=== PATIENT | female | born 1990 | race Caucasian/White ===

== ENCOUNTER 2016-03-18 05:38 | Inpatient (IN) | payer OTHER ==
[2016-03-18] MEDS ORDERED: CITRIC ACID/SODIUM CITRATE 30 ML UNIT-DOSE CUP PO ONE (06:00)
[2016-03-18] MEDS ORDERED: ELECTROLYTE-148 SOLN 500 ML IV ONE (06:00)
[2016-03-18] MEDS ORDERED: ELECTROLYTE-148 SOLN 1,000 ML IV SCH (06:30)
[2016-03-18 06:39] LABS: BASOPHIL 0.6 % (0-2.0); EOSINOPHIL 4.4 % (0-4.5); MCH 30.6 pg (25.7-33.7); MCHC 34.6 g/dl (32.0-36.0); MEAN CELL VOLUME 88.4 fl (80-96); MEAN PLT VOLUME 8.1 fl (7.5-11.1); NEUTROPHILS 56.7 % (42.8-82.8); PLATELET COUNT 326 K/MM3 (134-434); WHITE BLOOD COUNT 9.8 K/mm3 (4.0-10.0)
--- NOTE | 2016-03-18 06:41 | HP ---
[id number] 4Bd Chief Complaint: 38 weeks , previous c/s , labor, vaginal bleeding History of Present Illness: 25 yo f g 5 p1 0 3 1, edc by bro[facility] 03/31/16 c/o vaginal bleeding and pain since this am, fhr cat 1 contraction q 2 min , cx 2 cm, 80 vx -1 , with moderate vaginal bleeding noted on exam. hx of previous c/s requesting repeat c/s, risks discussed History Source: Patient Limitations to Obtaining History: Language Barrier - Past Medical History Pulmonary: No: Asthma Gastrointestinal: Yes: Constipation (h/o Bm 12/27 after 3 days). No: Gastritis , GERD, GI Bleed, Hemorrhoids, Ulcerative Colitis Hepatobiliary: Yes: Cholelithiasis (diagnozed incurrent admission) ...: 5 ...Para: 1 ...Term: 1 ...: 0 ...Spon : 3 ...Induced : 0 ... Weeks Gestation by Dates: 38 ...EDC by [facility]: 03/31/16 Infectious Disease: Yes: STD's (h/o Herpes, last break out 08/18), Other (hx of herpes with previous ) - Past Surgical History Past Surgical History: Yes: (04/2011) Hx Myomectomy: No Hx Transabdominal Cerclage: No - Smoking History Smoking history: Never smoked Have you smoked in the past 12 months: No - Alcohol/Substance Use Hx Alcohol Use: No History of Substance Use: reports: None - Social History ADL: Independent Occupation: former business development consultant for [employer] History of Recent Travel: No Home Medications - Allergies Allergies/Adverse Reactions: Allergies Allergy/AdvReac Type Severity Reaction Status Date / Time No Known Drug Allergies Allergy Verified 03/18/16 08:19 anes Allergy Mild Rash Uncoded 03/17/16 11:28 - Home Medications Home Medications: Ambulatory Orders Vit/Iron Fumarate/FA [ Tablet] 1 tablet PO DAILY 12/29/15 Ferrous Gluconate [Iron] 256 mg PO BID 03/17/16 Ibuprofen [Motrin -] 600 mg PO Q4H PRN #30 tablet 03/22/16 Family Disease History - Family Disease History Family Disease History: Diabetes: Mother, CA: Grandparent (GI cancer) Review of Systems - Review of Systems Constitutional: reports: No Symptoms Eyes: reports: No Symptoms HENT: reports: No Symptoms Neck: reports: No Symptoms Cardiovascular: reports: No Symptoms Respiratory: reports: No Symptoms Genitourinary: reports: Vaginal Bleeding Musculoskeletal: reports: No Symptoms Integumentary: reports: No Symptoms Neurological: reports: No Symptoms Endocrine: reports: No Symptoms Hematology/Lymphatic: reports: No Symptoms Psychiatric: reports: No Symptoms Physical Exam - Maternity Constitutional: Yes: Well Nourished, No Distress, Calm Eyes: Yes: WNL, Conjunctiva Clear, EOM Intact HENT: Yes: WNL, Atraumatic, Normocephalic Neck: Yes: WNL, Supple, Trachea Midline Cardiovascular: Yes: WNL, Regular Rate and Rhythm Breast(s): Yes: WNL - Abdominal Exam/OB Fundal Height: 40 Number of Fetuses: Single Presentation: Vertex Regularity: Regular Intensity: Mod/Strong Monitor Mode: External Heart Rate Location: [facility] Category: I Accelerations: Uniform Decelerations: None - Vaginal Exam/OB Vaginal Bleediing: Moderate Dilatation (cm): 2 cm Effacement (%): 80 Amniotic Membrane Status: Ruptured Nitrazine Test: Positive Presentation: Vertex/Position Station: -2 - Physical Exam Extremities: Yes: WNL Edema: LLE: Trace, RLE: Trace Integumentary: Yes: WNL Deep Tendon Reflex Grade: Normal +2 ...Motor Strength: WNL Psychiatric: Yes: WNL Hemorrhage Risk Assessment - Risk Factors Medium Risk Factors: Yes: Prior , uterine surgery,or multiple laparotomies Risk Score: 1 Risk Level: Medium Risk Assessment/Plan 38 weeks,previous c/s ,labor, vaginal bleeding, fhr cat 1 plan repeat c/s risks ulternative discussed
[2016-03-18 06:54] LABS: INR 1.04 (0.82-1.09); PROTHROMBIN TIME (PATIENT) 11.4 SEC (9.98-11.88)
[2016-03-18 06:57] LABS: ACTIVATED PTT 26.3 SECONDS (26.9-34.4)
[2016-03-18 07:01] LABS: ALBUMIN 2.8 g/dl (3.4-5.0); ALK PHOS 115 U/L (45-117); ANION GAP 11 (8-16); BILIRUBIN,TOTAL 0.2 mg/dL (0.2-1.0); CALCIUM 8.9 mg/dL (8.5-10.1); CO2 23 mmol/L (21-32); CREATININE 0.4 mg/dL (0.55-1.02); GLUCOSE,RANDOM 83 mg/dL (74-106); SGPT/ALT 15 U/L (12-78); TOT PROT 6.3 g/dl (6.4-8.2)
[2016-03-18 07:22] LABS: SGOT/AST 15 U/L (15-37)
[2016-03-18] MEDS ORDERED: ONDANSETRON 4 MG/2 ML VIAL IVPB PRN (07:28)
[2016-03-18] MEDS ORDERED: morphine SULFATE/Preservative Free 0.5 MG/ML (1cc Syringe) SPIN ONE (07:28)
[2016-03-18 07:38] LABS: HIV 1 & 2 AB NEGATIVE; HIV 1 AGp24 NEGATIVE
[2016-03-18] MEDS ORDERED: WITCH HAZEL 50% (TUCKS) 40 PAD/JAR PAD TP PRN (07:38)
[2016-03-18] MEDS ORDERED: METHYLERGONOVINE MALEATE 0.2 MG/1 ML AMP IM PRN (07:38)
[2016-03-18] MEDS ORDERED: oxyCODONE HCL 5 MG TABLET PO PRN (07:38)
[2016-03-18] MEDS ORDERED: IBUPROFEN 800 MG/8 ML IJ IVPB PRN (07:38)
[2016-03-18] MEDS ORDERED: BENZOCAINE 20% 57 GM BOTTLE TP PRN (07:38)
[2016-03-18] MEDS ORDERED: diphenhydrAMINE HCL 25 MG CAPSULE (FP) PO PRN (07:38)
[2016-03-18] MEDS ORDERED: IBUPROFEN 600 MG TABLET (FP) PO PRN (07:38)
[2016-03-18] MEDS ORDERED: BENZOCAINE 28 GM HEMORRHOIDAL OINTMENT PR PRN (07:38)
[2016-03-18] MEDS ORDERED: OXYTOCIN 20 UNITS in 0.9% NS 1,000 ML IV SCH (07:45)
[2016-03-18] MEDS ORDERED: DEXTROSE 5%-LACTATED RINGERS 1,000 ML IV SCH (07:45)
[2016-03-18 07:49] VITALS: BMI 32.0
--- NOTE | 2016-03-18 08:33 | OP ---
DATE OF OPERATION: 03/18/2016 PREOPERATIVE DIAGNOSIS: 38 weeks, previous section, labor, vaginal bleeding, ruptured membranes. POSTOPERATIVE DIAGNOSIS: 38 weeks, previous section, labor, vaginal bleeding, ruptured membranes, partial placental abruption. SURGEON: Salomon Wood MD STAGE SET DESIGNER: SUKHI Simeon ANESTHESIA: [place], . ESTIMATED BLOOD LOSS: 500 mL. DESCRIPTION OF PROCEDURE: The patient was taken to the operating room under adequate spinal anesthesia. Abdomen and perineum was prepped and draped. Pfannenstiel abdominal skin incision was made. Abdominal wall was cut layer by layer until the peritoneum was exposed and incised. Upon entering the abdominal cavity, lower uterine segment was identified and uterovesical fold of peritoneum established. Bladder was pushed down. Then with the lower blade of the Jeff retractor in the pelvis, a low transverse uterine incision was made. Incision was extended laterally. Amniotic sac was entered. Bloody fluid. Head delivered from right occiput posterior position. Nasopharynx was suctioned and live baby delivered. Apgars 9/9. Placenta was delivered. There was about 50 mL of blood clot retroplacental. Uterine cavity was cleaned of all tissues and then uterine incision was closed in 2 layers, the 1st layer with 0 Biosyn continuous suture, the 2nd layer with 0 Biosyn imbricating the 1st layer. Bladder flap was closed with 0 Biosyn continuous suture. Both tubes and ovaries were checked and were normal. No active bleeding was seen. All of the lap pad, sponge, and instrument counts were correct. Pelvic cavity several times irrigated and then peritoneum was closed with 0 Biosyn continuous suture. Muscles were brought together with interrupted sutures of 0 Biosyn. Fascia was closed with 0 Biosyn continuous suture, subcutaneous fat interrupted suture of 0 Biosyn, and the skin was closed with andreea. The patient tolerated the procedure well and left the OR in good condition. SALOMON WOOD M.D. [id number]
[2016-03-18] MEDS ORDERED: CEFAZOLIN 1 GM/D5W 50 ML IVPB SCH (10:00)
[2016-03-18] MEDS: CEFAZOLIN 1 GM/D5W 50 ML IVPB SCH (17:51)
[2016-03-19] MEDS: CEFAZOLIN 1 GM/D5W 50 ML IVPB SCH (01:47)
[2016-03-19] MEDS ORDERED: BISACODYL 10 MG SUPP.RECT RC PRN (07:38)
[2016-03-19 08:54] LABS: BASOPHIL 0.3 % (0-2.0); MCH 31.6 pg (25.7-33.7); MCHC 35.8 g/dl (32.0-36.0); MEAN CELL VOLUME 88.2 fl (80-96); MEAN PLT VOLUME 7.1 fl (7.5-11.1); NEUTROPHILS 72.8 % (42.8-82.8); PLATELET COUNT 259 K/MM3 (134-434); RDW 14.1 % (11.6-15.6); WHITE BLOOD COUNT 11.4 K/mm3 (4.0-10.0)
--- NOTE | 2016-03-19 09:40 | PN ---
Progress Note (short form) - Note Progress Note: pod 1 doing well, no excess vaginal bleeding, has mild cramps CBC, BMP 03/19/16 08:00 03/18/16 06:20 Last Vital Signs Temp Pulse Resp BP Pulse Ox 98.6 F 98 H 20 122/66 100 03/19/16 05:24 03/19/16 05:24 03/19/16 05:24 03/19/16 05:24 03/18/16 08:40 abdomen soft, no distension, no cva incision dry, clean no calf tenderness lochia mild plan ambulate, advance diet
[2016-03-19 11:46] LABS: URINE APPEARANCE CLEAR; URINE BILIRUBIN NEGATIVE (NEGATIVE); URINE COLOR STRAW; URINE GLUCOSE (UA) NEGATIVE (NEGATIVE); URINE KETONE TRACE (NEGATIVE); URINE NITRITE NEGATIVE (NEGATIVE); URINE PROTEIN NEGATIVE (NEGATIVE); URINE UROBILINOGEN NEGATIVE E.U./dl (0.2-1.0)
[2016-03-19 11:47] LABS: URINE BLOOD 3+ (NEGATIVE); URINE LEUK ESTERASE TRACE (NEGATIVE)
[2016-03-19 11:49] LABS: URINE BACTERIA RARE /hpf (NONE SEEN); URINE MUCUS RARE; URINE RBC 3 /hpf (0-3); URINE WBC 9 /hpf (3-5)
[2016-03-19] MEDS: IBUPROFEN 600 MG TABLET (FP) PO PRN ×2 (13:38→23:58)
[2016-03-19] MEDS: oxyCODONE HCL 5 MG TABLET PO PRN ×2 (13:38→23:59)
[2016-03-19] MEDS: SIMETHICONE 80 MG TAB.CHEW (FP) PO PRN ×2 (13:38→23:59)
--- NOTE | 2016-03-20 07:18 | PN ---
Progress Note (short form) - Note Progress Note: Dept of Anesthesia post op check: S/p c section under spinal anesthesia with duramorph for post op pain control. Patient is doing well, no adverse reaction from anesthetic. No headache, nausea , vomiting, motor sensory function back to normal. Dept of anesthesia will sign off care at this time.
--- NOTE | 2016-03-20 08:26 | PN ---
Progress Note (short form) - Note Progress Note: pod 2 doing well, passing gas, ambulating well CBC, BMP 03/19/16 08:00 03/18/16 06:20 Last Vital Signs Temp Pulse Resp BP Pulse Ox 98.7 F 96 H 20 124/61 100 03/19/16 22:00 03/19/16 22:00 03/19/16 22:00 03/19/16 22:00 03/18/16 08:40 abdomen soft, no distension, no cva incision dry, clean no calf tenderness plan cbc in am observe
[2016-03-20] MEDS: oxyCODONE HCL 5 MG TABLET PO PRN ×2 (13:52→23:16)
[2016-03-20] MEDS: SIMETHICONE 80 MG TAB.CHEW (FP) PO PRN ×2 (13:53→23:14)
[2016-03-20] MEDS: IBUPROFEN 600 MG TABLET (FP) PO PRN ×2 (13:53→23:14)
[2016-03-20] MEDS ORDERED: SENNOSIDES/DOCUSATE COMBO (SENNA PLUS) TABLET (UD) PO PRN (22:00)
--- NOTE | 2016-03-21 07:35 | PN ---
Post Progress Note - Subjective Subjective: Doing well postop. Tolerating regular diet, ambulating, voiding, passing flatus , pain well controlled. Post Day: 3 Type of Delivery: Repeat C/S Vital Signs: Vital Signs Temperature 98.3 F 03/20/16 20:46 Pulse Rate 82 03/20/16 20:46 Respiratory Rate 20 03/20/16 20:46 Blood Pressure 134/76 03/20/16 20:46 O2 Sat by Pulse Oximetry (%) 100 03/18/16 08:40 Breast Exam: Yes: Soft Uterus: Yes: Fundus Firm, Fundus below umbilicus Incision: Yes: Watrous intact Abdomen/GI: Yes: Abdomen soft, Passing flatus Lochia: Yes: Rubra Lochia, amount: Small Extremities: Yes: Calves non-tender Perineum: Yes: Intact Activity: Ambulating - Labs Labs: CBC WBC 11.4 K/mm3 (4.0-10.0) H 03/19/16 08:00 RBC 3.33 M/mm3 (3.60-5.2) L 03/19/16 08:00 Hgb 10.5 GM/dL (10.7-15.3) L D 03/19/16 08:00 Hct 29.4 % (32.4-45.2) L D 03/19/16 08:00 MCV 88.2 fl (80-96) 03/19/16 08:00 MCHC 35.8 g/dl (32.0-36.0) 03/19/16 08:00 RDW 14.1 % (11.6-15.6) 03/19/16 08:00 Plt Count 259 K/MM3 (134-434) D 03/19/16 08:00 MPV 7.1 fl (7.5-11.1) L D 03/19/16 08:00 Neutrophils % 72.8 % (42.8-82.8) D 03/19/16 08:00 Lymphocytes % 18.8 % (8-40) D 03/19/16 08:00 Monocytes % 6.1 % (3.8-10.2) 03/19/16 08:00 Eosinophils % 2.0 % (0-4.5) 03/19/16 08:00 Basophils % 0.3 % (0-2.0) 03/19/16 08:00 Assessment/Plan 24P2 POD#3 s/p R C/S, in labor. Doing well post op. VSS. AF. Anemic, denies SOB/ CP/Palpitations -Routine postop care -f/u AM CBC -encourage ambulation -regular diet -PO pain medication -anticipate d/c home POD4
[2016-03-21 07:56] LABS: BASOPHIL 0.2 % (0-2.0); EOSINOPHIL 4.6 % (0-4.5); MCH 31.4 pg (25.7-33.7); MCHC 35.5 g/dl (32.0-36.0); MEAN CELL VOLUME 88.5 fl (80-96); MEAN PLT VOLUME 7.3 fl (7.5-11.1); NEUTROPHILS 71.5 % (42.8-82.8); PLATELET COUNT 298 K/MM3 (134-434); RDW 14.2 % (11.6-15.6); WHITE BLOOD COUNT 10.2 K/mm3 (4.0-10.0)
[2016-03-21] MEDS: SIMETHICONE 80 MG TAB.CHEW (FP) PO PRN (18:34)
[2016-03-22 08:25] VITALS: BP 120/72; PULSE 86; TEMP 97.3
--- NOTE | 2016-03-22 08:45 | PN ---
Post Progress Note - Subjective Subjective: no c/o pain voiding without difficulty Post Day: 4 Type of Delivery: Repeat C/S Vital Signs: Vital Signs Temperature 97.3 F L 03/22/16 08:00 Pulse Rate 86 03/22/16 08:00 Respiratory Rate 14 03/22/16 08:00 Blood Pressure 120/72 03/22/16 08:00 O2 Sat by Pulse Oximetry (%) 100 03/18/16 08:40 Breast Exam: Yes: Soft. No: Engorged Uterus: Yes: Fundus Firm, Fundus below umbilicus Incision: Yes: Struthers intact. No: Redness, Oozing Abdomen/GI: Yes: Abdomen soft, Tolerating PO (diet ). No: Abdominal Distention , Tender Lochia: Yes: Rubra Lochia, amount: Moderate Extremities: Yes: Calves non-tender Perineum: Yes: Intact Activity: Ambulating - Labs Labs: CBC WBC 10.2 K/mm3 (4.0-10.0) H 03/21/16 07:00 RBC 3.51 M/mm3 (3.60-5.2) L 03/21/16 07:00 Hgb 11.0 GM/dL (10.7-15.3) 03/21/16 07:00 Hct 31.1 % (32.4-45.2) L 03/21/16 07:00 MCV 88.5 fl (80-96) 03/21/16 07:00 MCHC 35.5 g/dl (32.0-36.0) 03/21/16 07:00 RDW 14.2 % (11.6-15.6) 03/21/16 07:00 Plt Count 298 K/MM3 (134-434) 03/21/16 07:00 MPV 7.3 fl (7.5-11.1) L 03/21/16 07:00 Neutrophils % 71.5 % (42.8-82.8) 03/21/16 07:00 Lymphocytes % 18.9 % (8-40) 03/21/16 07:00 Monocytes % 4.8 % (3.8-10.2) 03/21/16 07:00 Eosinophils % 4.6 % (0-4.5) H D 03/21/16 07:00 Basophils % 0.2 % (0-2.0) 03/21/16 07:00 Assessment/Plan stable. discharge today
--- NOTE | 2016-03-27 12:36 | PATH ---
Surgical Pathology Report Patient Name: MOODY BORREGO Med. Rec. #: [id number] /Age/Gender: 1990 (Age: 25) / F Account: [id number] Location: [facility] OBS/ANTIQUER Taken: 03/18/2016 Received: 03/20/2016 Reported: 03/27/2016 Physicians: Brandon Wood M.D. Specimen(s) Received PLACENTA Clinical History , ROM, labor, vaginal bleeding, +GBS-not tx; c/section x1 Repeat c/section Final Diagnosis PLACENTA, DELIVERY: FOCALLY DISRUPTED THIRD TRIMESTER PLACENTA WITH FOCAL FIBRIN THROMBUS, FOCAL MILD INCREASE IN PREVILLOUS, PERIVILLOUS, AND PRECHORIONIC FIBRIN DEPOSITION, THREE VESSEL UMBILICAL CORD, AND PLACENTAL MEMBRANES WITH FOCAL LAMELLAR NECROSIS. Electronically Signed Dusty Tavera M.D. Gross Description The specimen is received fresh, labeled "placenta" and is a 401 gram, 17.5 x 13.0 x 2.0 cm placenta with attached membranes and umbilical cord. The attached membranes are clancy, translucent with focal opacities and insert marginally. The umbilical cord measures 23 cm in length and averages 1 cm in diameter. The cord inserts eccentrically, 4.5 cm to the nearest margin. No true knots or strictures are identified. Cut surface of the umbilical cord reveals 3 vessels. The surface is oden-blue with fibrin deposition and appropriate caliber vessels. The maternal surface is red-brown with focal defects. Sectioning reveals a 1.5 cm in greatest dimension hemorrhagic intraparenchymal lesion. The remaining placental parenchyma is red-brown and spongy. Regulatory Affairs Analyst sections are submitted in 4 cassettes as follows: 1-membrane rolls and umbilical cord; 2-lesion; 0-9-fxmi-thickness sections of placenta. 03/24/2016 saudi03/24/2016
== END 2016-03-22 12:10 | disposition home or self-care (01) | DRG 540 ==
LOC: JDEL 05:38 → JLDR 05:55 → J3W 09:15
PROVIDERS: ADMIT Obstetrics & Gynecology; ATTEND Obstetrics & Gynecology
PROC: 10D00Z1 Extraction of Products of Conception, Low, Open Approach (ICD-10-PCS; principal; 2016-03-18)
DX: O34.219 Maternal care for unspecified type scar from previous cesarean delivery (principal); O99.02 Anemia complicating childbirth; Z3A.38 38 weeks gestation of pregnancy; Z37.0 Single live birth
CPT/HCPCS: 36415; 80053; 81003; 81015; 85025; 85610; 85730; 86593; 86762; 86850; 86900; 86901; 87340; 87389; 88307-TC

== ENCOUNTER 2017-02-08 06:13 | Day surgery (SDC) | payer OTHER ==
--- NOTE | 2017-02-08 07:05 | PDOC ---
History of Present Illness - General Chief Complaint: Pain, Acute Stated Complaint: ABD PAIN Time Seen by Provider: 02/08/17 07:05 - History of Present Illness Initial Comments: 02/08/17 07:26 Ms. Eric Holden is a 26 yo female w/ prior dx of cholelithiasis who presents complaining of a 6 hour history of RUQ pain. She reports this pain started around 1 in the morning and she was not able to sleep last night. She says this feels very similar to a prior episode about a year ago when she was first told she had gall stones. She rates the pain as 4-5 out of 10 and says the pain is constant. The patient denies chest pain, shortness of breath, headache and dizziness. Denies fever, chills, nausea, vomit, diarrhea and constipation. Denies dysuria, frequency, urgency and hematuria. Allergies: NKDA Past History - Past Medical History Allergies/Adverse Reactions: Allergies Allergy/AdvReac Type Severity Reaction Status Date / Time No Known Drug Allergies Allergy Verified 03/18/16 08:19 anes Allergy Mild Rash Uncoded 03/17/16 11:28 Home Medications: Ambulatory Orders NK [No Known Home Medication] 02/08/17 Anemia: No Asthma: No Cancer: No Cardiac Disorders: No CVA: No COPD: No DVT: No Dementia: No Diabetes: No Dialysis: No GI Disorders: No Disorders: No HTN: No Hypercholesterolemia: No Kidney Stones: No Liver Disease: No Psychiatric Problems: No Seizures: No Thyroid Disease: No Lung CA: No - Reproductive History (#): 5 Para: 1 - Immunization History Immunization Up to Date: Yes - Suicide/Smoking/Psychosocial Hx Smoking History: Never smoked Have you smoked in the past 12 months: No Hx Alcohol Use: No Drug/Substance Use Hx: No Substance Use Type: None Hx Substance Use Treatment: No Review of Systems - Review of Systems Comments:: 02/08/17 07:30 GENERAL/CONSTITUTIONAL: No fever or chills. No weakness. HEAD, EYES, EARS, NOSE AND THROAT: No change in vision. No ear pain or discharge. No sore throat. CARDIOVASCULAR: No chest pain or shortness of breath RESPIRATORY: No cough, wheezing, or hemoptysis. GASTROINTESTINAL: +RUQ pain since 1 am GENITOURINARY: No dysuria, frequency, or change in urination. MUSCULOSKELETAL: No joint or muscle swelling or pain. No neck or back pain. SKIN: No rash NEUROLOGIC: No headache, vertigo, loss of consciousness, or change in strength/ sensation. ENDOCRINE: No increased thirst. No abnormal weight change HEMATOLOGIC/LYMPHATIC: No anemia, easy bleeding, or history of blood clots. ALLERGIC/IMMUNOLOGIC: No hives or skin allergy. *Physical Exam - Vital Signs Last Vital Signs Temp Pulse Resp BP Pulse Ox 98.7 F 74 18 120/76 99 02/08/17 06:32 02/08/17 06:32 02/08/17 06:32 02/08/17 06:32 02/08/17 06:32 - Physical Exam Comments: 02/08/17 07:31 GENERAL: Awake, alert, and fully oriented, in no acute distress HEAD: No signs of trauma, normocephalic, atraumatic EYES: PERRLA, EOMI, sclera anicteric, conjunctiva clear ENT: Auricles normal inspection, hearing grossly normal, nares patent, oropharynx clear without exudates. Moist mucosa NECK: Normal ROM, supple, no lymphadenopathy, JVD, or masses LUNGS: No distress, speaks full sentences, clear to auscultation bilaterally HEART: Regular rate and rhythm, normal S1 and S2, no murmurs, rubs or gallops, peripheral pulses normal and equal bilaterally. ABDOMEN: +TTP in RUQ. Soft, normoactive bowel sounds. No guarding, no rebound. No masses EXTREMITIES: Normal inspection, Normal range of motion, no edema. No clubbing or cyanosis. NEUROLOGICAL: Cranial nerves II through XII grossly intact. Normal speech, normal gait, no focal sensorimotor deficits SKIN: Warm, Dry, normal turgor, no rashes or lesions noted. ED Treatment Course - LABORATORY CBC & Chemistry Diagram: 02/08/17 07:30 02/08/17 07:27 Medical Decision Making - Medical Decision Making 02/08/17 09:40 Ms. Reyes has a history of cholelithiasis with coinciding RUQ symptoms. Abdominal US confirmatory; patient currently reporting resolution of pain. No signs of cholecystitis noted (no increased WBC, fever, edema on US, etc.). Will consult Gen Surg (Chris assistant manager of operations) for cholecystectomy consultation. 02/08/17 10:58 Dr. Perez evaluated patient and will take to OR. Admitting as instructed. *DC/Admit/Observation/Transfer Diagnosis at time of Disposition: Cholelithiasis Qualifiers: Cholelithiasis location: gallbladder Cholecystitis presence: without cholecystitis Biliary obstruction: with biliary obstruction Qualified Code(s): K80.21 - Calculus of gallbladder without cholecystitis with obstruction - Discharge Dispostion Admit: Yes - Referrals Referrals: Kayla Jay [Primary Care Provider] - - Patient Instructions - Post Discharge Activity
[2017-02-08 07:18] LABS: URINE APPEARANCE SLCLOUDY; URINE BILIRUBIN NEGATIVE (NEGATIVE); URINE BLOOD NEGATIVE (NEGATIVE); URINE COLOR YELLOW; URINE GLUCOSE (UA) NEGATIVE (NEGATIVE); URINE KETONE NEGATIVE (NEGATIVE); URINE NITRITE NEGATIVE (NEGATIVE); URINE PROTEIN NEGATIVE (NEGATIVE); URINE UROBILINOGEN NEGATIVE mg/dL (0.2-1.0)
[2017-02-08] MEDS ORDERED: SODIUM CHLORIDE 1,000 ML IV STA (07:20)
[2017-02-08] MEDS ORDERED: morphine CARPU-JECT 2 MG/1 ML DISP.SYRIN IVPUSH ONE (07:21)
[2017-02-08] MEDS ORDERED: ONDANSETRON 4 MG/2 ML VIAL IVPUSH ONE (07:22)
[2017-02-08 07:24] LABS: URINE LEUK ESTERASE 2+ (NEGATIVE)
[2017-02-08 07:26] LABS: URINE BACTERIA RARE /hpf (NONE SEEN); URINE MUCUS FEW; URINE RBC 1 /hpf (0-3); URINE WBC 5 /hpf (3-5)
[2017-02-08] MEDS ORDERED: morphine SULFATE 4 MG/ML VIAL ONE (07:29)
[2017-02-08] MEDS ORDERED: ONDANSETRON 4 MG/2 ML VIAL ONE (07:29)
[2017-02-08 07:56] LABS: BASOPHIL 0.5 % (0-2.0); EOSINOPHIL 3.4 % (0-4.5); MCH 27.4 pg (25.7-33.7); MCHC 34.2 g/dl (32.0-36.0); MEAN PLT VOLUME 7.5 fl (7.5-11.1); NEUTROPHILS 49.4 % (42.8-82.8); PLATELET COUNT 374 K/MM3 (134-434); RDW 15.4 % (11.6-15.6); WHITE BLOOD COUNT 7.7 K/mm3 (4.0-10.0)
--- NOTE | 2017-02-08 08:03 | PDOC ---
Attending Attestation - Medical Decision Making 02/08/17 10:12 Dr. Perez paged via office number. Awaiting call back. 02/08/17 10:32 Dr. Perez returned the page and the patients case was discussed with me. <Kimi Cornell - Last Filed: 02/08/17 10:32> - Resident Resident Name: Vasile Escalante - ED Attending Attestation I have performed the following: I have examined & evaluated the patient, The case was reviewed & discussed with the resident, I agree w/resident's findings & plan, Exceptions are as noted - HPI HPI: 02/08/17 07:26 26 F with no PMH presents to ER with RUQ pain that started at 1 AM today. She reports constant pain radiating from her epigastric region to her R side. Pt denies N/V. Denies F/C. Denies any association with food. Had one similar episode a year ago and was found to have gallstones. Did not have surgery at that time because she was . Last PO intake was last night 9pm. - Physicial Exam PE: 02/08/17 08:10 "GENERAL: Awake, alert, and fully oriented, in no acute distress HEAD: No signs of trauma EYES: PERRLA, EOMI, sclera anicteric, conjunctiva clear ENT: Auricles normal inspection, hearing grossly normal, nares patent, oropharynx clear without exudates. Moist mucosa NECK: Nontender, no stepoffs, Normal ROM, supple, no lymphadenopathy, JVD, or masses LUNGS: Breath sounds equal, clear to auscultation bilaterally. No wheezes, and no crackles HEART: Regular rate and rhythm, normal S1 and S2, no murmurs, rubs or gallops ABDOMEN: +RUQ TTP, no rebound/guarding EXTREMITIES: Normal range of motion, no edema. No clubbing or cyanosis. No cords, erythema, or tenderness NEUROLOGICAL: Cranial nerves II through XII intact. 5/5 strength and sensation in all extremities, Normal speech, normal gait SKIN: Warm, Dry, normal turgor, no rashes or lesions noted. " - Medical Decision Making 02/08/17 08:10 26 F with known cholelithiasis, presenting with RUQ pain. Will repeat US to evaluate for signs of acute cholecystitis vs obstructing stone. - Labs - RUQ sono - Surgery consult 02/08/17 10:[address] cholelithiasis. Dr. Perez consulted, to evaluate pt for possible cholecystectomy. <Markell Monet - Last Filed: 02/08/17 10:59>
[2017-02-08 08:26] LABS: INR 1.12 (0.82-1.09); PROTHROMBIN TIME (PATIENT) 12.6 SEC (9.98-11.88)
[2017-02-08 08:29] LABS: ACTIVATED PTT 30.3 SECONDS (26.9-34.4)
[2017-02-08 08:56] LABS: ALBUMIN 3.7 g/dl (3.4-5.0); ANION GAP 6 (8-16); BILIRUBIN,TOTAL 0.2 mg/dL (0.2-1.0); CALCIUM 8.4 mg/dL (8.5-10.1); CO2 24 mmol/L (21-32); CREATININE 0.5 mg/dL (0.55-1.02); GLUCOSE,RANDOM 94 mg/dL (74-106); SGPT/ALT 24 U/L (12-78); TOT PROT 7.5 g/dl (6.4-8.2)
[2017-02-08 08:57] LABS: ALK PHOS 83 U/L (45-117)
[2017-02-08 09:40] LABS: SGOT/AST 17 U/L (15-37)
--- NOTE | 2017-02-08 11:33 | EKG ---
Test Reason : Blood Pressure : / mmHG Vent. Rate : 075 BPM Atrial Rate : 075 BPM P-R Int : 130 ms QRS Dur : 082 ms QT Int : 384 ms P-R-T Axes : 052 -11 003 degrees QTc Int : 428 ms NORMAL SINUS RHYTHM NORMAL ECG NO PREVIOUS ECGS AVAILABLE Confirmed by NAE NASH MD ([id number]) on 02/08/2017 11:33:00 AM Referred By: Confirmed By:NAE NASH MD
[2017-02-08 11:38] LABS: URINE LEUK ESTERASE Negative (NEGATIVE)
--- NOTE | 2017-02-08 11:46 | HP ---
CHIEF COMPLAINT:RUQ abdominal pain PCP: HISTORY OF PRESENT ILLNESS:26 y/o female presented w/> 6 hours of RUQ abdominal pain w/ nausea; no vomting; she has a h/o known cholelithiasis previously dxed 12/18 during ; she denies dark urine/light stools; NOC. Recent Travel:none PAST MEDICAL HISTORY:none PAST SURGICAL HISTORY:C-S x 2 Social History: Smoking:none Alcohol:none Drugs: none Family History:non contributory Allergies No Known Drug Allergies Allergy (Verified 03/18/16 08:19) anes Allergy (Mild, Uncoded 03/17/16 11:28) Rash epidural anesthesia last HOME MEDICATIONS: Home Medications Medication Instructions Recorded NK [No Known Home Medication] 02/08/17 REVIEW OF SYSTEMS CONSTITUTIONAL: Absent: fever, chills, diaphoresis, generalized weakness, malaise, loss of appetite, weight change HEENT: Absent: rhinorrhea, nasal congestion, throat pain, throat swelling, difficulty swallowing, mouth swelling, ear pain, eye pain, visual changes CARDIOVASCULAR: Absent: chest pain, syncope, palpitations, irregular heart rate, lightheadedness , peripheral edema RESPIRATORY: Absent: cough, shortness of breath, dyspnea with exertion, orthopnea, wheezing, stridor, hemoptysis GASTROINTESTINAL: Present abdominal pain, abdominal distension, nausea, vomiting, GENITOURINARY: Absent: dysuria, frequency, urgency, hesitancy, hematuria, flank pain, genital pain MUSCULOSKELETAL: Absent: myalgia, arthralgia, joint swelling, back pain, neck pain SKIN: Absent: rash, itching, pallor HEMATOLOGIC/IMMUNOLOGIC: Absent: easy bleeding, easy bruising, lymphadenopathy, frequent infections ENDOCRINE: Absent: unexplained weight gain, unexplained weight loss, heat intolerance, cold intolerance NEUROLOGIC: Absent: headache, focal weakness or paresthesias, dizziness, unsteady gait, seizure, mental status changes, bladder or bowel incontinence PSYCHIATRIC: Absent: anxiety, depression, suicidal or homicidal ideation, hallucinations. PHYSICAL EXAMINATION Vital Signs - 24 hr 02/08/17 06:32 Temperature 98.7 F Pulse Rate 74 Respiratory 18 Rate Blood Pressure 120/76 O2 Sat by Pulse 99 Oximetry (%) GENERAL: Awake, alert, and fully oriented, in no acute distress. HEAD: Normal with no signs of trauma. EYES: sclera anicteric, conjunctiva clear. No lid lag. EARS, NOSE, THROAT: Ears normal, nares patent, Moist mucous membranes. NECK: Normal range of motion, supple without lymphadenopathy, JVD, or masses. ABDOMEN: Soft, tender RUQ w/inspiratory arrest, not distended, normoactive bowel sounds, RUQ guarding, no rebound, no masses. No hepatomegaly or splenomegaly. No hernias. MUSCULOSKELETAL: Normal range of motion at all joints. No bony deformities or tenderness. No CVA tenderness. UPPER EXTREMITIES: 2+ pulses, warm, well-perfused. No cyanosis. No clubbing. No peripheral edema. LOWER EXTREMITIES: 2+ pulses, warm, well-perfused. No calf tenderness. No peripheral edema. NEUROLOGICAL: Cranial nerves II-XII intact. Normal speech. Normal gait. PSYCHIATRIC: Cooperative. Good eye contact. Appropriate mood and affect. SKIN: Warm, dry, normal turgor, no rashes or lesions noted, normal capillary refill. Laboratory Results - last 24 hr 02/08/17 02/08/17 02/08/17 06:59 06:59 07:27 WBC RBC Hgb Hct MCV MCH MCHC RDW Plt Count MPV Neutrophils % Lymphocytes % Monocytes % Eosinophils % Basophils % PT with INR INR PTT (Actin FS) Sodium 138 Potassium 4.5 Chloride 108 H Carbon Dioxide 24 Anion Gap 6 L BUN 7 Creatinine 0.5 L D Creat Clearance w eGFR > 60 Random Glucose 94 Calcium 8.4 L Total Bilirubin 0.2 AST 17 ALT 24 D Alkaline Phosphatase 83 D Total Protein 7.5 Albumin 3.7 D Lipase 139 Urine Color Yellow Urine Appearance Slcloudy Urine pH 5.0 D Ur Specific Klemme 1.023 Urine Protein Negative Urine Glucose (UA) Negative Urine Ketones Negative Urine Blood Negative Urine Nitrite Negative Urine Bilirubin Negative Urine Urobilinogen Negative Urine WBC (Auto) 5 Urine RBC (Auto) 1 Ur Epithelial Cells Moderate Urine Bacteria Rare Urine Mucus Few Urine HCG, Qual Negative Blood Type Antibody Screen 02/08/17 02/08/17 02/08/17 07:27 07:27 07:30 WBC 7.7 RBC 4.42 D Hgb 12.1 Hct 35.3 MCV 80.0 MCH 27.4 D MCHC 34.2 RDW 15.4 Plt Count 374 D MPV 7.5 Neutrophils % 49.4 D Lymphocytes % 39.7 D Monocytes % 7.0 Eosinophils % 3.4 Basophils % 0.5 PT with INR 12.60 H INR 1.12 PTT (Actin FS) 30.3 Sodium Potassium Chloride Carbon Dioxide Anion Gap BUN Creatinine Creat Clearance w eGFR Random Glucose Calcium Total Bilirubin AST ALT Alkaline Phosphatase Total Protein Albumin Lipase Urine Color Urine Appearance Urine pH Ur Specific Klemme Urine Protein Urine Glucose (UA) Urine Ketones Urine Blood Urine Nitrite Urine Bilirubin Urine Urobilinogen Urine WBC (Auto) Urine RBC (Auto) Ur Epithelial Cells Urine Bacteria Urine Mucus Urine HCG, Qual Blood Type B POSITIVE Antibody Screen Negative Imaging w/u to date and previous reviewed; labs reviewed ASSESSMENT/PLAN:biliary colic; cholelithiasis; for lap lexy possible open today ; r/b/t/a's d/w the patient in [place] and informed consent obtained. Markell Perez MD FACS Visit type - Emergency Visit Emergency Visit: Yes ED Registration Date: 02/08/17 Care time: The patient presented to the Emergency Department on the above date and was hospitalized for further evaluation of their emergent condition. - New Patient This patient is new to me today: Yes Date on this admission: 02/08/17 - Critical Care Critical Care patient: No
[2017-02-08] MEDS ORDERED: ONDANSETRON 4 MG/2 ML VIAL IVPUSH PRN ×2 (12:06→14:35)
[2017-02-08] MEDS ORDERED: LACTATED RINGERS SOLUTION 1,000 ML IV SCH (12:15)
[2017-02-08] MEDS ORDERED: PROPOFOL 20 ML ONE ×3 (12:17→13:59)
[2017-02-08] MEDS ORDERED: ROCURONIUM BROMIDE 50 MG/5 ML VIAL ONE (12:19)
[2017-02-08] MEDS ORDERED: GLYCOPYRROLATE 0.2 MG/1 ML VIAL ONE (12:20)
[2017-02-08] MEDS ORDERED: NEOSTIGMINE METHYLSULFATE 0.5 MG/ML - 10 ML MDV ONE (12:20)
[2017-02-08] MEDS ORDERED: ACETAMINOPHEN 325 MG TABLET (FP) PO PRN ×2 (12:25→14:35)
[2017-02-08] MEDS ORDERED: MIDAZOLAM HCL 2 MG/2 ML SINGLE DOSE VIAL ONE (12:47)
[2017-02-08] MEDS ORDERED: ceFAZolin SODIUM 1 GM VIAL IVPB ONE (13:01)
[2017-02-08] MEDS ORDERED: ceFAZolin SODIUM 1 GM VIAL ONE (13:01)
[2017-02-08] MEDS ORDERED: LIDOCAINE HCL 2% 100 MG/5 ML DISP.SYRIN ONE (13:05)
[2017-02-08] MEDS ORDERED: BUPIVACAINE HCL/PF 0.5% (5MG/ML) 10 ML VIAL ONE (13:16)
[2017-02-08] MEDS ORDERED: BUPIVACAINE HCL/PF 0.5% (5MG/ML) 10 ML VIAL IJ ONE (13:58)
[2017-02-08] MEDS ORDERED: KETOROLAC TROMETHAMINE 30 MG/1 ML VIAL ONE (13:58)
--- NOTE | 2017-02-08 14:05 | OP ---
Operative Note - Note: Operative Date: 02/08/17 Pre-Operative Diagnosis: biliary colic; cholelithiasis Operation: lap lexy Findings: chronic cholecystitis/cholelithiasis Surgeon: Markell Perez Boiler Attendant: Stephanie Marks Anesthesiologist/AUXILIARY EQUIPMENT TENDER: Gianluca Dominguez Anesthesia: General Specimens Removed: gallbladder and contents Estimated Blood Loss (mls): 20
[2017-02-08] MEDS ORDERED: KETOROLAC TROMETHAMINE 30 MG/1 ML VIAL IVPUSH PRN (14:22)
--- NOTE | 2017-02-08 14:37 | SURG ---
Surgery Geodetic Computator Note Geodetic Computator: Stephanie Marks PA-C Date of Service: 02/08/17 Diagnosis: cholelithiasism cholecystitis Procedure: Laparoscopic cholecystectomy I was present for the entirety of the operative procedure. For further detail, please refer to operative report. Visit type - Case Type Case Type: ED Admission - Emergency Emergency Visit: Yes ED Registration Date: 02/08/17 Care time: The patient presented to the Emergency Department on the above date and was hospitalized for further evaluation of their emergent condition. - New patient This patient is new to me today: Yes Date on this admission: 02/08/17
[2017-02-08] MEDS: LACTATED RINGERS SOLUTION 1,000 ML IV SCH (15:45)
[2017-02-08 16:55] VITALS: BMI 26.9
[2017-02-08] MEDS: oxyCODONE HCL 5 MG TABLET PO PRN (20:53)
[2017-02-08] MEDS: HEPARIN NA (PORCINE) 5,000 UNITS/ML 1ML VIAL SQ SCH (20:59)
[2017-02-09] MEDS: HEPARIN NA (PORCINE) 5,000 UNITS/ML 1ML VIAL SQ SCH (05:41)
[2017-02-09] MEDS: oxyCODONE HCL 5 MG TABLET PO PRN (06:04)
[2017-02-09] MEDS: LACTATED RINGERS SOLUTION 1,000 ML IV SCH (06:12)
--- NOTE | 2017-02-09 09:12 | PN ---
Progress Note (short form) - Note Progress Note: Attending Surgeon PODS #1 No c/o; voided and tolerated diet VSS AF abdomen-soft; port site tenderness only; dressings c/d/i IMP: doing well PLAN: Discharge home to office f/u 7-10 days; a/a/u by the patient as explained in Kiswahili. Markell Perez MD FACS
[2017-02-09 12:16] VITALS: BP 138/66; PULSE 92; TEMP 98.9
--- NOTE | 2017-02-10 04:11 | OP ---
DATE OF OPERATION: 02/08/2017 PREOPERATIVE DIAGNOSES: Biliary colic, cholelithiasis, and chronic cholecystitis. POSTOPERATIVE DIAGNOSES: Biliary colic, cholelithiasis, and chronic cholecystitis. PROCEDURE: Laparoscopic cholecystectomy. SURGEON: Markell Perez MD MUMPS DEVELOPER: Stephanie Marks PA-C ANESTHESIA: General. OPERATIVE FINDINGS: Chronic cholecystitis and cholelithiasis. The rest of the findings were unremarkable. DESCRIPTION OF PROCEDURE: The patient was placed on the operating room table in supine position. After the induction of general anesthesia, the patient's abdomen was prepped with ChloraPrep and draped in a sterile fashion. A time-out was taken and pneumoperitoneum established above the umbilicus using a Veress needle to an intra-abdominal pressure of 15 mmHg. A 5-mm port was placed above the umbilicus and laparoscopy carried out. Additional 5-mm lateral ports and a subxiphoid 12-mm port were placed. The gallbladder was placed in cephalad and lateral traction, and adherent omentum to the gallbladder was taken down using electrocautery. Dissection was then begun in the triangle of Calot where the peritoneum was opened medially and laterally using blunt dissection and electrocautery. The cystic duct was identified and dissected proximally and distally for length as was the cystic artery. The critical view of safety was taken and then the duct and artery divided using the Endo Joey after being clipped twice proximally and distally with 10-mm hemoclips. The gallbladder was then removed from the liver bed in a retrograde fashion using electrocautery. Prior to removal from the edge of the liver, hemostasis was checked for and noted to be good. The gallbladder was then removed from the edge of the liver, placed in a specimen retrieval bag, and brought out through a subxiphoid port. Pneumoperitoneum was reestablished, hemostasis verified, and then all ports removed under laparoscopic vision without evidence of bleeding from the port sites. The peritoneum was evacuated, and all port sites were infiltrated with 0.5% Marcaine and the skin edges closed with 4Vicryl in a subcuticular and continuous fashion. Steri-Strips and Band-Aid dressings were placed and the procedure terminated at this point and the patient aroused from general anesthesia and transferred to the post anesthesia care unit in stable condition awake and alert. ESTIMATED BLOOD LOSS: 20 mL. REPLACEMENTS: Crystalloid. DRAINS: None. SPECIMENS: Gallbladder and contents to pathology. I, Markell Perez, was physically present in the operating room from the time the patient was placed on the operating room table until she was transferred to the post anesthesia care unit in [facility]. MD JAROCHO Geiger/[id number] MTDD
--- NOTE | 2017-02-12 11:35 | PATH ---
Surgical Pathology Report Patient Name: MOODY BORREGO [facility]. Rec. #: [id number] /Age/Gender: 1990 (Age: 26) / F Account: [id number] Location: AMBULATORY SURG Taken: 02/08/2017 Received: 02/09/2017 Reported: 02/12/2017 Physicians: Markell Perez MD Specimen(s) Received GALLBLADDER Clinical History Cholelithiasis Final Diagnosis GALLBLADDER, CHOLECYSTECTOMY: CHRONIC CHOLECYSTITIS AND CHOLELITHIASIS. PROMINENT ROKITANSKY-ASCHOFF SINUS FORMATION PRESENT. Electronically Signed Noe Snider M.D. Gross Description Received in formalin, labeled "gallbladder," is a 6.5 x 2.3 x 2.0 cm. gallbladder with a 0.2 cm. in length portion of cystic duct attached. The outer surface is clancy oden and varies from smooth to shaggy. The lumen contains green, tenacious bile as well as multiple yellow, irregular to fragmented choleliths ranging from 0.1-0.9 cm in greatest dimension. The mucosa is green and velvety. The wall of the gallbladder displays a focal thickening and measures up to 0.6 cm. in thickness. Inseminator sections are submitted in 2 cassettes as follows: 1-cystic duct margin and denial management representative gallbladder; 2-focal thickening of gallbladder wall. 02/09/201702/09/2017
== END 2017-02-09 13:32 | disposition home or self-care (01) ==
LOC: JER 06:13 → JASUSAT 10:59 → UNDOADMIN 10:59 → JERBED 10:59 → J8W 17:15 → JASUSAT 02-09 13:32
PROVIDERS: ATTEND Surgery
PROC: 0FT44ZZ Resection of Gallbladder, Percutaneous Endoscopic Approach (ICD-10-PCS; principal; 2017-02-08 12:30)
DX: K80.10 Calculus of gallbladder with chronic cholecystitis without obstruction (principal)
CPT/HCPCS: 36415; 76705-TC; 80053; 81003; 81015; 83690; 84703; 85025; 85610; 85730; 86850; 86900; 86901; 87086; 88304-TC; 93005; 93010; 99284-25; J1644